=== PATIENT | male | born 1945 | race Caucasian/White ===

== ENCOUNTER 2017-07-08 05:56 | Day surgery (SDC) | payer MEDICARE ==
[2017-07-04 09:47] VITALS: BP 97/59
[2017-07-04 09:58] LABS: BASOPHILS % (AUTO) 1.8 % (0.0-5.0); EOSINOPHILS % (AUTO) 5.9 % (0.0-8.0); HEMATOCRIT 43.8 % (42-54); MEAN CORPUSCULAR HEMOGLOBIN 32.1 pg (27.0-33.0); MEAN CORPUSCULAR HGB CONC 34.5 g/dL (32.0-36.0); MEAN CORPUSCULAR VOLUME 93.1 fL (79-99); MONOCYTES % (AUTO) 9.9 % (3.0-13.0); NEUTROPHILS % (AUTO) 58.4 % (40.0-77.0); PLATELET COUNT (AUTO) 197 K/uL (130-400); RED CELL DISTRIBUTION WIDTH 13.3 % (11.0-15.5); WHITE BLOOD COUNT (AUTO) 7.1 K/uL (4.8-10.8)
[2017-07-04 10:08] LABS: POTASSIUM 4.3 mmol/L (3.5-5.1)
[2017-07-04 10:13] LABS: INR 1.43 (0.85-1.15); PARTIAL THROMBOPLASTIN TIME 31.8 SEC (26.3-35.5); PROTHROMBIN TIME 14.9 SEC (9.6-11.6)
[~2017-07-08] VITALS: Ht 172.7 cm; Wt 88.5 kg
[2017-07-08] VITALS (11 sets, daily range): BP systolic 92–130; BP diastolic 64–81
[~2017-07-08 05:56] MED LIST: ATOR10TA69 PO; CEFAZOLIN SODIUM 1 GM VIAL IVP SCH; CETI-101 PO; DIGO250T84 PO; DRON400T2 PO; ESOM40CA PO; LEVO100T12 PO; METO-391 PO; OCCUVITE PO; TAMS-1 PO; WARF5TAB76 PO
[2017-07-08] MEDS ORDERED: SODIUM CHLORIDE 0.9% 1000ML 1,000 ML IV ONE (06:51)
[2017-07-08] MEDS ORDERED: CEFAZOLIN 1GM / D5W 50ML 150 ML ONE (09:47)
[2017-07-08] MEDS ORDERED: ISOVUE-300 100 ML VIAL IV ONE (09:47)
[2017-07-08] MEDS ORDERED: BUPIVACAINE/PF 0.25% 30ML VIAL IJ ONE (09:47)
[2017-07-08] MEDS ORDERED: LIDOCAINE HCL 1% MDV 50ML VIAL ONE (09:47)
[2017-07-08] MEDS ORDERED: MIDAZOLAM HCL 1 MG/ML 2ML VIAL ONE ×2 (10:11→10:21)
[2017-07-08] MEDS ORDERED: MEPERIDINE-PF 25 MG/ML SYG ONE ×2 (10:11→10:21)
[2017-07-08] MEDS ORDERED: OCTYL 2-CYANOACRYLATE 1 EACH TP ONE (10:58)
[2017-07-08] MEDS ORDERED: DOXY100C2 PO (11:16)
[2017-07-08] MEDS ORDERED: ONDANSETRON HCL 4 MG/2 ML VIAL IV PRN (11:30)
[2017-07-08] MEDS ORDERED: ACETAMINOPHEN-CODEINE 300/30MG TAB PO PRN ×2 (11:30)
[2017-07-08] MEDS ORDERED: ACETAMINOPHEN 325 MG TAB PO PRN ×2 (11:30)
[2017-07-08] MEDS ORDERED: CEFAZOLIN SODIUM 1 GM VIAL IVP SCH (16:00)
[2017-07-08] MEDS ORDERED: CEFAZOLIN 1GM / D5W 50ML 50 ML IV ONE (16:00)
== END 2017-07-08 16:37 | disposition home or self-care (01) ==
LOC: DAH 05:56
PROVIDERS: ATTEND Internal Medicine Cardiovascular Disease
DX: I49.5 Sick sinus syndrome (principal); Z79.899 Other long term (current) drug therapy; Z79.01 Long term (current) use of anticoagulants; I48.91 Unspecified atrial fibrillation; R00.0 Tachycardia, unspecified; E04.1 Nontoxic single thyroid nodule; Z95.0 Presence of cardiac pacemaker
CPT/HCPCS: 33228; 36415; 80048; 85025; 85610; 85730; 93005; A4218; A4606; C1785; J0690 ×2; J2175 ×2; J2250 ×2; J3490 ×2; J7030; 99152; 99153; Q9967

== ENCOUNTER 2018-04-21 08:56 | Emergency (ER) | payer MEDICARE ==
[~2018-04-21 08:56] MED LIST changes: -CEFAZOLIN SODIUM 1 GM VIAL IVP SCH; +DOXY100C2 PO
[2018-04-21 09:35] LABS: BASOPHILS % (AUTO) 1.1 % (0.0-5.0); EOSINOPHILS % (AUTO) 1.7 % (0.0-8.0); HEMATOCRIT 44.5 % (42-54); LYMPHOCYTES % (AUTO) 11.9 % (21.0-51.0); MEAN CORPUSCULAR HEMOGLOBIN 30.9 pg (27.0-33.0); MEAN CORPUSCULAR HGB CONC 33.7 g/dL (32.0-36.0); MEAN CORPUSCULAR VOLUME 91.6 fL (79-99); MONOCYTES % (AUTO) 9.8 % (3.0-13.0); NEUTROPHILS % (AUTO) 75.5 % (40.0-77.0); PLATELET COUNT (AUTO) 215 K/uL (130-400); RED BLOOD CELL COUNT(AUTO) 4.86 MIL/uL (4.50-6.20); RED CELL DISTRIBUTION WIDTH 13.6 % (11.0-15.5); WHITE BLOOD COUNT (AUTO) 11.6 K/uL (4.8-10.8)
[2018-04-21 09:40] LABS: CREATININE 1.1 mg/dL (0.5-1.5); POTASSIUM 4.3 mmol/L (3.5-5.1)
[2018-04-21 09:46] LABS: DIGOXIN 1.28 ng/mL (0.50-2.00)
== END 2018-04-21 12:06 | disposition home or self-care (01) ==
LOC: EDH 08:56
DX: I48.91 Unspecified atrial fibrillation (principal); I48.92 Unspecified atrial flutter; E78.5 Hyperlipidemia, unspecified; Z95.0 Presence of cardiac pacemaker; Z87.891 Personal history of nicotine dependence
CPT/HCPCS: 36415; 71046; 80048; 80162; 84484; 85025; 93005

== ENCOUNTER → 2018-05-05 | Outpatient (CLI) | payer MEDICARE ==
[~2018-05-05] MED LIST changes: +ATOR10 PO; +CITRUCEL PO; +FLUTICASONE NASAL; +IOHEXOL-350 50ML VIAL IV ONE; +IPRATROPIUM BROMIDE NASAL; +MIRALAX PO; +PRESERVISION PO; +VITAMIN B12 PO
== END | disposition home or self-care (01) ==
LOC: RAH 07:36
PROVIDERS: ATTEND Internal Medicine Cardiovascular Disease
DX: J84.10 Pulmonary fibrosis, unspecified (principal); I77.819 Aortic ectasia, unspecified site; I48.0 Paroxysmal atrial fibrillation
CPT/HCPCS: 71275; Q9967

== ENCOUNTER 2018-05-07 05:26 | Observation (INO) | payer MEDICARE ==
[2018-05-05 10:35] VITALS: BP 106/61
[2018-05-05 11:03] LABS: BASOPHILS % (AUTO) 1.2 % (0.0-5.0); EOSINOPHILS % (AUTO) 3.1 % (0.0-8.0); HEMATOCRIT 43.6 % (42-54); LYMPHOCYTES % (AUTO) 18.4 % (21.0-51.0); MEAN CORPUSCULAR HGB CONC 33.2 g/dL (32.0-36.0); MEAN CORPUSCULAR VOLUME 93.2 fL (79-99); MONOCYTES % (AUTO) 8.4 % (3.0-13.0); NEUTROPHILS % (AUTO) 68.9 % (40.0-77.0); NUCLEATED RED BLOOD CELLS 0.1 % (0.0-0.19); PLATELET COUNT (AUTO) 209 K/uL (130-400); RED BLOOD CELL COUNT(AUTO) 4.68 MIL/uL (4.50-6.20); RED CELL DISTRIBUTION WIDTH 13.3 % (11.0-15.5)
[2018-05-05 11:04] LABS: POTASSIUM 4.1 mmol/L (3.5-5.1)
[2018-05-05 11:46] LABS: INR 1.81 (0.85-1.15); PARTIAL THROMBOPLASTIN TIME 39.3 SEC (26.3-35.5); PROTHROMBIN TIME 18.8 SEC (9.6-11.6)
--- NOTE | 2018-05-06 11:11 | NUR ---
ABNORMAL LABS REPORTED ABNORMAL LABS TO DR. HUGHES. PT/INR/PTT. NO NEW ORDERS.
[~2018-05-07] VITALS: Ht 165.1 cm; Wt 89.9 kg
[2018-05-07] VITALS (23 sets, daily range): BP systolic 94–131; BP diastolic 59–79
[~2018-05-07 05:26] MED LIST changes: -ATOR10TA69 PO; -DOXY100C2 PO; -IOHEXOL-350 50ML VIAL IV ONE; -OCCUVITE PO; +SODIUM CHLORIDE 0.9% 1000ML 1,000 ML IV SCH
--- NOTE | 2018-05-07 06:16 | NUR ---
VALUABLES: CLOTHING GIVEN TO . NO OTHER VALUABLES BROUGHT TO HOSPITAL.
[2018-05-07] MEDS ORDERED: HEPARIN SODIUM 1000UNIT/ML 10ML VIAL ONE ×2 (07:22→09:40)
[2018-05-07] MEDS ORDERED: SUCCINYLCHOLINE 200MG/10ML SYR ONE (07:28)
[2018-05-07] MEDS ORDERED: LIDOCAINE PF 2% 5ML ABBOJECT ONE (07:28)
[2018-05-07] MEDS ORDERED: MIDAZOLAM HCL 1 MG/ML 2ML VIAL ONE (07:28)
[2018-05-07] MEDS ORDERED: DEXAMETHASONE SOD PHOSPHATE 10MG/ML 1ML VIAL ONE (07:28)
[2018-05-07] MEDS ORDERED: ONDANSETRON HCL 4 MG/2 ML VIAL ONE (07:28)
[2018-05-07] MEDS ORDERED: ROCURONIUM 10MG/1ML SYR 10 MG/ML ML ONE ×2 (07:29→07:30)
[2018-05-07] MEDS ORDERED: PROPOFOL 10 MG/ML 20ML VIAL IV ONE ×2 (07:29→11:13)
[2018-05-07] MEDS ORDERED: NEOSTIGMINE 5MG/5ML SYR IV ONE (07:29)
[2018-05-07] MEDS ORDERED: GLYCOPYRROLATE 1 MG/5 ML SYRINGE ONE (07:29)
[2018-05-07] MEDS ORDERED: FENTANYL CITRATE PF 50 MCG/1 ML 5ML AMP IV ONE (07:30)
[2018-05-07] MEDS ORDERED: EPHEDRINE SULFATE 50 MG/ML AMPULE ONE (07:32)
[2018-05-07] MEDS ORDERED: LIDOCAINE HCL-MPF 2% 10ML AMP IJ ONE (08:59)
[2018-05-07] MEDS ORDERED: PHENYLEPHRINE HCL 10 MG/ML 1ML VIAL IV ONE ×2 (10:03→11:40)
[2018-05-07] MEDS ORDERED: ROCURONIUM BROMIDE 10MG/1ML 5ML VL ONE (11:30)
[2018-05-07] MEDS ORDERED: PROTAMINE SULFATE 10 MG/ML 25ML VIAL IV ONE (11:56)
[2018-05-07] MEDS ORDERED: SODIUM CHLORIDE 0.9% 1000ML 1,000 ML IV SCH (12:42)
--- NOTE | 2018-05-07 14:00 | NUR ---
RECEIVED PATIENT FROM DAY SURGERY S/P ABLATION BY DR. HUGHES. BOTH GROINS HAVE OCCLUSIVE DRESSING. MINIMAL SANGUENOUS DRAINAGE NOTED ON THE RIGHT DRESSING. SITES ARE BOTH SOFT. NO HEMATOMA NOR OOZING. PATIENT IS TO REMAIN ON BEDREST FOR 4 HOURS. PATIENT IS AWARE OF ACTIVITY RESTRICTIONS. AT BEDSIDE. VITALS MONITORED. TELE VANESSA APPLIED. CALL LIGHT WITHIN REACH.
[2018-05-07] MEDS: SUCRALFATE 1 GM/10 ML PO SCH (16:23)
[2018-05-07] MEDS ORDERED: WARFARIN SODIUM 5 MG TAB PO SCH (17:00)
[2018-05-07] MEDS ORDERED: ATORVASTATIN CALCIUM 10 MG TABLET PO SCH (21:00)
[2018-05-07] MEDS ORDERED: TAMSULOSIN HCL 0.4 MG CAP.ER.24H PO SCH (21:00)
[2018-05-07] MEDS ORDERED: APIXABAN 5 MG TABLET PO SCH (21:00)
[2018-05-07] MEDS: DRONEDARONE HYDROCHLORIDE 400 MG TABLET PO SCH (21:00)
[2018-05-07] MEDS ORDERED: MORPHINE SULFATE 2 MG/ML 1ML SYG IV PRN (21:30)
[2018-05-08] MEDS: SUCRALFATE 1 GM/10 ML PO SCH ×2 (00:19→06:25)
[2018-05-08 00:31] VITALS: BP 129/68
--- NOTE | 2018-05-08 00:37 | NUR ---
Unable to administer Rx. Multaq 400 mg p.o. Omnicell out of Rx. Ck.with ICU,3TH & 4TH Floor, and ER. 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 Patient in no apparent distress at this time.
[2018-05-08 04:01] LABS: INR 1.13 (0.85-1.15); PROTHROMBIN TIME 11.8 SEC (9.6-11.6)
[2018-05-08 04:11] VITALS: BP 122/68
[2018-05-08] MEDS ORDERED: LEVOTHYROXINE 100 MCG TABLET ONE (07:22)
--- NOTE | 2018-05-08 07:30 | NUR ---
ASSESSMENT ENCOUNTERED PT A&OX3, CALM COOPERATIVE AND DOES NOT APPEAR TO BE IN ANY DISTRESS NOR ANY NEURO DEFICITS PRESENT. RT AND LEFT GROIN SOFT NONTENDER WITH NO OOZING OR HEMATOMA PRESENT. DP/PT PULSES PALPABLE. FREIRE CATHETER REMOVED. PT IS AMBULATORY, GAIT SLOW BUT STEADY WITH STAND BY ASSIST. CALL LIGHT WITHIN REACH, FAMILY AT BEDSIDE.
[2018-05-08 07:42] VITALS: BP 124/67
--- NOTE | 2018-05-08 08:19 | NUR ---
Report given to Cory Gordon R.N. Patient in stable condition.
[2018-05-08] MEDS ORDERED: CETIRIZINE HCL 5 MG TABLET PO SCH (09:00)
[2018-05-08] MEDS ORDERED: LEVOTHYROXINE 100 MCG TABLET PO SCH (09:00)
[2018-05-08] MEDS ORDERED: **HM** TOPROL XL 50MG PO SCH (09:00)
[2018-05-08] MEDS ORDERED: PANTOPRAZOLE SODIUM 40 MG TABLET.DR PO SCH (09:00)
[2018-05-08] MEDS: DRONEDARONE HYDROCHLORIDE 400 MG TABLET PO SCH (09:43)
[2018-05-08 11:24] VITALS: BP 93/60
[2018-05-08] MEDS ORDERED: CARAL PO (12:56)
[2018-05-08] MEDS ORDERED: APIX5TAB PO (12:56)
[2018-05-08] MEDS ORDERED: APIXABAN 5 MG TABLET PO SCH (13:00)
--- NOTE | 2018-05-08 15:00 | NUR ---
DISCHARGE INSTRUCTIONS GIVEN, PIV REMOVED AND INTACT, DISCHARGED HOME TO FAMILY VEHICLE VIA WHEELCHAIR.
== END 2018-05-08 14:25 | disposition home or self-care (01) ==
LOC: DAH 05:26 → DAHIP 05:27 → DAH 05:27 → 2AH 14:00
PROVIDERS: ADMIT Internal Medicine; ATTEND Internal Medicine
DX: I48.0 Paroxysmal atrial fibrillation (principal); I49.5 Sick sinus syndrome; E03.9 Hypothyroidism, unspecified; E78.5 Hyperlipidemia, unspecified; I10 Essential (primary) hypertension; N40.0 Benign prostatic hyperplasia without lower urinary tract symptoms; J30.9 Allergic rhinitis, unspecified; Z83.3 Family history of diabetes mellitus; Z95.0 Presence of cardiac pacemaker; Z82.49 Family history of ischemic heart disease and other diseases of the circulatory system
CPT/HCPCS: 36415 ×2; 80048; 85025; 85610 ×2; 85730; 93005 ×2; 93613; 93622; 93623; 93656; 93662; A4215; A4344; A4649; C1730; C1731; C1732; C1893; C1894 ×4; G0378 ×33; J0330; J1100; J1644 ×4; J2001; J2250; J2370 ×2; J2405; J2704 ×2; J2710; J2720; J3010; J3490 ×4; J7030; 93286

== ENCOUNTER 2018-07-28 06:12 | Day surgery (SDC) | payer MEDICARE ==
[~2018-07-28] VITALS: Ht 172.7 cm; Wt 88.5 kg
[~2018-07-28 06:12] MED LIST changes: +APIX5TAB PO; +CARAL PO; -DIGO250T84 PO; +SODIUM CHLORIDE 0.9% 1000ML 1,000 ML IV ONE; -SODIUM CHLORIDE 0.9% 1000ML 1,000 ML IV SCH; -WARF5TAB76 PO
[2018-07-28 07:51] VITALS: BP 123/77
[2018-07-28] MEDS ORDERED: PROPOFOL 10 MG/ML 20ML VIAL IV ONE (09:13)
[2018-07-28] MEDS ORDERED: EPHEDRINE SULFATE 50 MG/ML AMPULE ONE (09:14)
[2018-07-28 09:49] VITALS: BP 99/70
[2018-07-28 09:54] VITALS: BP 99/75
[2018-07-28 09:59] VITALS: BP 100/69
[2018-07-28 10:04] VITALS: BP 108/73
[2018-07-28 10:12] VITALS: BP 112/72
== END 2018-07-28 10:23 | disposition home or self-care (01) ==
LOC: ENDO 06:12 → DAH 06:15 → ENDO 10:23
PROVIDERS: ATTEND Internal Medicine
DX: Z12.11 Encounter for screening for malignant neoplasm of colon (principal); D12.3 Benign neoplasm of transverse colon; K63.5 Polyp of colon; D12.2 Benign neoplasm of ascending colon; D12.5 Benign neoplasm of sigmoid colon; K57.30 Diverticulosis of large intestine without perforation or abscess without bleeding; K29.50 Unspecified chronic gastritis without bleeding; I10 Essential (primary) hypertension; I48.91 Unspecified atrial fibrillation; Z86.010 Personal history of colon polyps; K44.9 Diaphragmatic hernia without obstruction or gangrene; K22.8 Other specified diseases of esophagus; K31.89 Other diseases of stomach and duodenum; K31.7 Polyp of stomach and duodenum; Z86.73 Personal history of transient ischemic attack (TIA), and cerebral infarction without residual deficits; Z95.0 Presence of cardiac pacemaker; Z98.890 Other specified postprocedural states; E78.5 Hyperlipidemia, unspecified; Z79.899 Other long term (current) drug therapy; E03.8 Other specified hypothyroidism; K64.1 Second degree hemorrhoids
CPT/HCPCS: 43239; 43251; 45380; 45385; 88305; 93005; A4606; J2704; J7030; J3490

== ENCOUNTER → 2019-04-13 | Outpatient (CLI) | payer OTHER ==
[~2019-04-13] MED LIST changes: -CARAL PO; -CITRUCEL PO; -SODIUM CHLORIDE 0.9% 1000ML 1,000 ML IV ONE
== END | disposition home or self-care (01) ==
LOC: SHCH 08:52
PROVIDERS: ATTEND Internal Medicine Cardiovascular Disease
DX: I65.23 Occlusion and stenosis of bilateral carotid arteries (principal); I71.4 Abdominal aortic aneurysm, without rupture
CPT/HCPCS: 93880

== ENCOUNTER → 2019-04-22 | Outpatient (CLI) | payer OTHER ==
[~2019-04-22] MED LIST changes: -CETI-101 PO; +CETI-109 PO
== END | disposition home or self-care (01) ==
LOC: SHCH 07:58
PROVIDERS: ATTEND Internal Medicine Cardiovascular Disease
DX: I71.4 Abdominal aortic aneurysm, without rupture (principal)
CPT/HCPCS: 93978

== ENCOUNTER 2020-01-18 07:26 | Day surgery (SDC) | payer OTHER ==
[~2020-01-18] VITALS: Ht 167.6 cm; Wt 87.1 kg
[~2020-01-18 07:26] MED LIST changes: -CETI-109 PO; +CETI-89 PO; +METH850P PO; -METO-391 PO; +METO-408 PO; +SODIUM CHLORIDE 0.9% 1000ML 1,000 ML IV ONE
[2020-01-18 08:45] VITALS: BP 103/79
[2020-01-18] MEDS ORDERED: PROPOFOL 10 MG/ML 20ML VIAL IV ONE ×2 (09:11)
[2020-01-18] MEDS ORDERED: SODIUM CHLORIDE 0.9% 10 ML VIAL ONE (09:16)
[2020-01-18] MEDS ORDERED: PHENYLEPHRINE HCL 10 MG/ML 1ML VIAL IV ONE (09:16)
[2020-01-18] MEDS ORDERED: EPHEDRINE SULFATE 50 MG/ML AMPULE ONE (09:34)
[2020-01-18 09:41] VITALS: BP 98/66
[2020-01-18 09:46] VITALS: BP 99/64
[2020-01-18 09:51] VITALS: BP 104/66
[2020-01-18 09:56] VITALS: BP 110/67
[2020-01-18 10:01] VITALS: BP 118/68
== END 2020-01-18 10:05 | disposition home or self-care (01) ==
LOC: DAH 07:26 → ENDO 07:26
PROVIDERS: ATTEND Internal Medicine Gastroenterology
DX: Z09 Encounter for follow-up examination after completed treatment for conditions other than malignant neoplasm (principal); Z86.010 Personal history of colon polyps; K63.5 Polyp of colon; K64.0 First degree hemorrhoids; K57.30 Diverticulosis of large intestine without perforation or abscess without bleeding; E03.8 Other specified hypothyroidism; I48.91 Unspecified atrial fibrillation; I10 Essential (primary) hypertension; E78.5 Hyperlipidemia, unspecified; Z86.73 Personal history of transient ischemic attack (TIA), and cerebral infarction without residual deficits; Z79.01 Long term (current) use of anticoagulants; Z79.899 Other long term (current) drug therapy
CPT/HCPCS: 45380; 45385; 88305; 93005; A4215; A4221; A4222; A4223; A4606; A4620; A4663; C9803; J2370; J2704 ×2; J3490; J7030; U0003; 36415

== ENCOUNTER → 2020-06-09 | Outpatient (CLI) | payer OTHER ==
[~2020-06-09] MED LIST changes: -SODIUM CHLORIDE 0.9% 1000ML 1,000 ML IV ONE
== END | disposition home or self-care (01) ==
LOC: SHCH 13:20
PROVIDERS: ATTEND Internal Medicine Cardiovascular Disease
DX: I08.0 Rheumatic disorders of both mitral and aortic valves (principal); R01.1 Cardiac murmur, unspecified
CPT/HCPCS: 93306; 93356

== ENCOUNTER → 2020-06-20 | Outpatient (CLI) | payer OTHER | END | disposition home or self-care (01) | LOC: SHCH 07:48 | PROVIDERS: ATTEND Internal Medicine Cardiovascular Disease | DX: I65.29 Occlusion and stenosis of unspecified carotid artery (principal); I71.4 Abdominal aortic aneurysm, without rupture | CPT/HCPCS: 93880; 93978 ==

== ENCOUNTER → 2021-10-02 | Outpatient (CLI) | payer OTHER ==
[~2021-10-02] MED LIST changes: -DRON400T2 PO; +DRON400T7 PO
== END | disposition home or self-care (01) ==
LOC: SHCH 10:15
PROVIDERS: ATTEND Internal Medicine Cardiovascular Disease
DX: I65.23 Occlusion and stenosis of bilateral carotid arteries (principal); I48.0 Paroxysmal atrial fibrillation
CPT/HCPCS: 93880